=== PATIENT | male | born 2000 | race Caucasian/White ===

== ENCOUNTER 2022-11-27 22:24 | Emergency (ER) | payer BC ==
[~2022-11-27] VITALS: Ht 170.2 cm; Wt 117.9 kg
[2022-11-27 23:18] VITALS: BP 129/97
[2022-11-27] MEDS ORDERED: IBUPROFEN 400 MG TABLET ONE (23:25)
[2022-11-27] MEDS ORDERED: IBUPROFEN 400 MG TABLET PO ONE (23:30)
== END 2022-11-28 00:02 | disposition home or self-care (01) ==
LOC: ER 22:32
DX: S39.012A Strain of muscle, fascia and tendon of lower back, initial encounter (principal); S40.012A Contusion of left shoulder, initial encounter; V89.2XXA Person injured in unspecified motor-vehicle accident, traffic, initial encounter; Y93.89 Activity, other specified; Y92.89 Other specified places as the place of occurrence of the external cause; Y99.8 Other external cause status
CPT/HCPCS: 72110-TC; 73030-TC

== ENCOUNTER 2024-01-02 02:33 | Emergency (ER) | payer SELFPAY ==
[~2024-01-02] VITALS: Ht 172.7 cm; Wt 117.9 kg
[2024-01-02 03:47] VITALS: BP 158/76; TEMP 98.4; O2SAT 98
[2024-01-02] MEDS ORDERED: AMOX-430 PO (03:48)
[2024-01-02] MEDS ORDERED: AMOX/CLAVULANATE 875 MG TABLET ONE (03:51)
[2024-01-02] MEDS: AMOX/CLAVULANATE 875 MG TABLET PO ONE (03:53)
== END 2024-01-02 03:55 | disposition home or self-care (01) ==
LOC: ER 02:34
DX: H66.91 Otitis media, unspecified, right ear (principal)